=== PATIENT | female | born 1975 | race Two or more races ===

== ENCOUNTER 2024-12-12 10:20 | Emergency (ER) | payer MEDICAID, OTHER ==
[~2024-12-12] VITALS: Ht 157.5 cm; Wt 107.0 kg
--- NOTE | 2024-12-12 10:34 | ED.PDOC ---
History of Present Illness HPI Comments 49 y/o F presents with c/c headache and right neck, shoulder, back, leg, and ankle pain s/p mechanical slip and fall. Patient endorses on slipping on a wet floor and falling onto her right side, while walking inside a [employer], earlier, today. She reports hearing a 'pop' after heating the ground. Unknown head injury. No lost of consciousness. Significant history of 2x previous rotator cuff surgeries. Denies any dizziness, vision or speech changes, numbness, tingling, swelling, or further associated symptoms. Vital signs were stable at arrival. 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 Family History Family History: Unknown Social History Smoker: Non-Smoker Alcohol: Denies ETOH Use Drugs: Denies Drug Use Lives In: Home Constitutional: denies: chills, diaphoresis, fatigue, fever, malaise, sweats, weakness, others EENTM: denies: blurred vision, double vision, ear bleeding, ear discharge, ear drainage, ear pain, ear ringing, eye pain, eye redness, hearing loss, mouth pain, mouth swelling, nasal discharge, nose bleeding, nose congestion, nose pain, photophobia, tearing, throat pain, throat swelling, voice changes, others Respiratory: denies: cough, hemoptysis, orthopnea, SOB at rest, shortness of breath, SOB with excertion, stridor, wheezing, others Cardiovascular: denies: chest pain, dizzy spells, diaphoresis, Dyspnea on exertion, edema, irregular heart beat, left arm pain, lightheadedness, palpitations, PND, syncope, others Gastrointestinal: denies: abdomen distended, abdominal pain, blood streaked bowels, constipated, diarrhea, dysphagia, difficulty swallowing, hematemesis, melena, nausea, poor appetite, poor fluid intake, rectal bleeding, rectal pain, vomiting, others Genitourinary: denies: abnormal vagina bleeding, burning, dyspareunia, dysuria, flank pain, frequency, hematuria, incontinence, pain, , vagina discharge, urgency, others Neurological: denies: dizziness, fainting, headache, left sided numbness, left sided weakness, numbness, paresthesia, pre-existing deficit, right sided numbness, right sided weakness, seizure, speech problems, tingling, tremors, weakness, others Musculoskeletal: reports: others (Neck pain, right shoulder pain, thoracic spine pain, lumbar spine pain, coccyx pain, right ankle pain); denies: back pain, gout, joint pain, joint swelling, muscle pain, muscle stiffness, neck pain Integumetry: denies: bruises, change in color, change in hair/nails, dryness, laceration, lesions, lumps, rash, wounds, others Allergic/Immunocompromised: denies: Difficulty Healing, Frequent Infections, Hives, Itching, others Hematologic/Lymphatic: denies: anemia, blood clots, easy bleeding, easy bruising, swollen glands, others Endocrine: denies: excessive hunger, excessive sweating, excessive thirst, excessive urination, flushing, intolerance to cold, intolerance to heat, unexplained weight gain, unexplained weight loss, others Psychiatric: denies: anxiety, bipolar disorder, depression, hopeless, panic d isorder, schizophrenia, sleepless, suicidal, others All Other Systems: Reviewed and Negative (Comprehensive review of systems are negative unless otherwise stated in HPI) Physical Exam General Appearance: Moderate Distress (Due to multiple musculoskeletal pain concerns.), Obese HEENT: Normal ENT Inspection, Pharynx Normal, TMs Normal Neck: Other (Patient was in a hard C-collar time of evaluation.) Respiratory: Chest Non-Tender, Lungs Clear, No Accessory Muscle Use, No Respiratory Distress, Normal Breath Sounds Cardiovascular: No Edema, No JVD, No Murmur, No Gallop, Normal Peripheral Pulses, Regular Rate/Rhythm Breast Exam: Deferred Gastrointestinal: No Organomegaly, Non Tender, No Pulsatile Mass, Normal Bowel Sounds, Soft Genitalia: Deferred Pelvic: Deferred Rectal: Deferred Extremities: Other (Right shoulder is diffusely tender to palpation on anterior and lateral aspect. Moderate reduced range of motion. No crepitus appreciated. No edema or ecchymosis. Right ankle reveals some mild lateral edema. No ecchymosis. Patient can not bear weight.) Musculoskeletal : Location: Bilateral Extremity Location: Back (Bilateral tenderness to palpation throughout patient is back from thoracic region towards the coccyx. No step-offs noted. Reduced range of motion noted.) Apperance: Normal Neurologic: Alert, Normal Affect, Normal Mood Cerebellar Function: NOT DONE Reflexes: NOT DONE Skin: Dry, Normal Color, Warm Lymphatic: No Adenopathy Was a procedure done? Was a procedure done?: No Differential Dx Considerations may include: fractures, dislocations, contusions, sprain, musculoskeletal pain, among others X-Ray, Labs, Meds, VS Vital Signs Date Time Temp Pulse Resp B/P (MAP) Pulse Ox O2 Delivery O2 Flow Rate FiO2 12/12/24 10:27 97.7 74 16 135/84 97 97.7 Current Medications Medications (Trade) Dose Ordered Sig/Moy Route Start Time Stop Time Status Last Admin Acetaminophen/ Hydrocodone Bitart ([place] 10/325MG Tab) 1 tab ONCE ONCE PO 12/12/24 10:30 12/12/24 10:31 DC 12/12/24 11:26 Gabapentin (Neurontin Capsule) 600 mg ONCE ONCE PO 12/12/24 12:15 12/12/24 12:16 DC 12/12/24 12:25 X-Ray, Labs, Meds, VS Comment All studies performed in the ED today were evaluated by me personally. CT evaluation of the cervical spine was unremarkable for any cervical fractures or vertebrae concerns. X-rays of shoulder, thoracic spine, lumbar spine, coccyx and right ankle were unremarkable for any acute fractures. Patient appears to have sustained contusions related to her event. Advise utilizing medication as needed as well as ice therapy. Time of 1ST Reevaluation: 12:35 Reevaluation 1ST: Improved Consultation: PCP Patient Education/Counseling: Diagnosis, Treatment, Need For Follow Up Family Education/Counseling: Diagnosis, Treatment, No Family Present SEPSIS Sepsis Screen Recent Procedure: No On Antibiotic Therapy: No Respiratory Rate >20: No Heart Rate >90: No Temp<36 C (96.8 F) or >38.3 C: No SBP <90 or MAP <65 mmHG: No New Acute Mental Status Change: No Is the patient on CPAP, BIPAP,: No Physician Orders Cervical Without Contrast (12/12/24 10:27) Lumbar Spine 3 View (12/12/24 10:27) Sacrum And Coccyx (12/12/24 10:27) Spine Thoracic 2view (12/12/24 10:27) R Shoulder 2+ View Xray (12/12/24 10:27) R Ankle 3 View (12/12/24 10:27) Vital Signs Date Time Temp Pulse Resp B/P (MAP) Pulse Ox O2 Delivery O2 Flow Rate FiO2 12/12/24 10:27 97.7 74 16 135/84 97 97.7 Medications Medications Dose Ordered Sig/Moy Route Start Time Stop Time Status Last Admin Dose Admin Acetaminophen/ Hydrocodone Bitart 1 tab ONCE ONCE PO 12/12/24 10:30 12/12/24 10:31 DC 12/12/24 11:26 Gabapentin 600 mg ONCE ONCE PO 12/12/24 12:15 12/12/24 12:16 DC 12/12/24 12:25 Departure 1 Departure Time of Disposition: 12:35 Impression: Primary Impression: Cervical muscle strain Additional Impressions: Shoulder contusion Back strain Right ankle sprain Disposition: HOME / SELF CARE / HOMELESS Condition: Stable Additional Instructions: Advise utilizing medication as needed for symptomatic relief as well as ice therapy. If symptoms continue, patient will need to follow up with the primary care provider for longer-term management. e-Prescriptions Oxycodone W/ Acetaminophen (Percocet 5/325MG) 1 Tab Tb 1 TAB PO Q8HP PRN, #12 TAB Prov: ROB HARMON PAC 12/12/24 Ibuprofen Micronized (Ibuprofen) 800 Mg Tab 800 MG PO Q8HP PRN, #20 TAB Prov: ROB HARMON PAC 12/12/24 Discharged With: Self, Friend Critical Care Note Critical Care Time?: No Stability Stability form required: No Heart Score Heart Score: Heart Score Response (Comments) Value History N/A 0 EKG N/A 0 Age N/A 0 Risk Factors N/A 0 Troponin N/A 0 Total 0 I personally scribed for ROB HARMON PAC ([email or web address]) on 12/12/24 at 10:34. Electronically submitted by Franck Husain ([email or web address]). ROB HARMON PAC Dec 12, 2024 10:34
[2024-12-12] MEDS: HYDROcodone-ACET 10/325MG TAB PO ONE (11:26)
--- NOTE | 2024-12-12 11:31 | DVH ---
XY SPINE THORACIC 2VIEW, HISTORY: Fall/trauma TECHNICAL DATA: Frontal, swimmer's and lateral views were obtained of the thoracic spine. COMPARISON: None FINDINGS: Thoracic alignment is anatomic. Disk heights are maintained. Vertebral body heights are maintained an d there is no endplate defect. Paraspinal soft tissues are within normal limits. IMPRESSION: No acute fracture thoracic spine series.
--- NOTE | 2024-12-12 11:32 | DVH ---
XY R ANKLE 3 VIEW, INDICATION: Fall/trauma TECHNICAL DATA:Frontal , oblique and lateral views were obtained of the right ankle. COMPARISON: None FINDINGS: No fracture is identified. Joint spaces are maintained. Alignment is anatomic. Soft tissues are wit hin normal limit. IMPRESSION: No acute fracture or dislocation of the right ankle.
--- NOTE | 2024-12-12 11:33 | DVH ---
XY LUMBAR SPINE 3 VIEW, HISTORY: Trauma/fall COMPARISON: None TECHNICAL DATA: Frontal and lateral views were obtained of the lumbar spine . FINDINGS: There are 5 lumbar type vertebral bodies. Lumbar curvature is within normal limits. There is no spond ylolisthesis. Vertebral body heights are maintained. Disk heights are narrow. The facet joints appear degenerative. The sacroiliac joints are symmetric. Paraspinal soft tissues are within normal limits. IMPRESSION: No acute fracture or dislocation of the lumbar spine.
--- NOTE | 2024-12-12 11:33 | DVH ---
XY R SHOULDER 2+ VIEW XRAY INDICATION: Fall/trauma TECHNICAL DATA: 3 views were obtained of the right shoulder. COMPARISON: None FINDINGS: There is no fracture or focal bone abnormality. The glenohumeral joint is normally maintained. The ac romioclavicular joint appears degenerative. The humeral head is not high riding. Adjacent soft tissue s are within normal limits. Degenerative changes are noted involving the visualized spine. IMPRESSION: No acute fracture or dislocation of the right shoulder.
--- NOTE | 2024-12-12 11:34 | DVH ---
XY SACRUM AND COCCYX HISTORY: Fall/trauma TECHNICAL DATA: Frontal, Dunbar and lateral views were obtained of the sacrum and coccyx. COMPARISON: None FINDINGS: No fracture or focal abnormality is demonstrated involving the sacrum. The sacral neural foramina albert ear symmetric. There is no distraction or displacement of the coccygeal segments. The sacroiliac join ts appear normal. IMPRESSION: No acute fracture radiographs of the sacrum and coccyx.
--- NOTE | 2024-12-12 11:57 | DVH ---
CT CERVICAL WITHOUT CONTRAST INDICATION: Trauma/fall EXAM DATE: 12/12/2024 11:06 AM COMPARISON: None RADIATION DOSE: CTDIvol: 26.93 mGy, DLP: 631.23 mGy*cm PROCEDURE: Utilizing the CT scanner, contiguous axial images were obtained through the cervical spine . Coronal and sagittal reformatted images were then generated. All CT scans at this medical facility are performed using dose modulation techniques as appropriate t o a performed exam including the following: Automated exposure control was utilized; adjustment of th e MA and/or KV according to patient size; and use of iterative reconstruction technique. FINDINGS: Alignment at the craniocervical junction is maintained. The cortical margins are intact. Th e vertebral body heights and cervical alignment are normal. The facet joints show normal alignment wi thout fracture. The intervertebral disc spaces are narrowed and degenerative. The paraspinal soft tis sues appear normal. On axial images: There is multi level posterior disc osteophyte complex with moderate central canal n arrowing at C5-C6 and moderate to severe bilateral neuroforaminal narrowing. Facet and uncinate spond ylosis is visualized. IMPRESSION: No cervical spine fracture or subluxation.
[2024-12-12] MEDS: GABAPENTIN 300 MG CAP PO ONE (12:25)
[2024-12-12] MEDS ORDERED: IBUP-1455 PO (12:37)
[2024-12-12] MEDS ORDERED: PERCOT PO (12:37)
[2024-12-12] MEDS ORDERED: HYDR-4798 PO (12:49)
[2024-12-12] MEDS ORDERED: GABA-1250 PO (12:49)
[2024-12-12 12:50] VITALS: BP 118/72; PULSE 62; RESP 18; TEMP 97.8; O2SAT 99
== END 2024-12-12 12:52 | disposition home or self-care (01) ==
LOC: EDBD 10:20 → ER 10:20
DX: S16.1XXA Strain of muscle, fascia and tendon at neck level, initial encounter (principal); S39.012A Strain of muscle, fascia and tendon of lower back, initial encounter; S93.491A Sprain of other ligament of right ankle, initial encounter; S40.011A Contusion of right shoulder, initial encounter; M25.571 Pain in right ankle and joints of right foot; W01.0XXA Fall on same level from slipping, tripping and stumbling without subsequent striking against object, initial encounter; Y93.01 Activity, walking, marching and hiking; Y92.89 Other specified places as the place of occurrence of the external cause; Y99.8 Other external cause status
CPT/HCPCS: 72070; 72100; 72125; 72220; 73030; 73610

== ENCOUNTER 2024-12-20 05:54 | Emergency (ER) | payer MEDICAID ==
[~2024-12-20] VITALS: Ht 160 cm; Wt 105.1 kg
[~2024-12-20 05:54] MED LIST: GABA-1250 PO; HYDR-4798 PO; IBUP-1455 PO
--- NOTE | 2024-12-20 06:31 | ED.PDOC ---
VISE HAND HPI Comments 49 y/o F, presents to the ED for CC of abdominal pain. Patient states, she is currently and had a positive at home test in November; LMP on 10/14/24. Patient relays, that she had a trip and fall on 12/12/24 for which she was seen at [facility], the day after trauma patient reports vaginal bleeding with associated abdominal cramping. Since fall, patient endorses abdominal cramping has not ceased and now has new onset symptoms of nausea and vomiting. At this time patient complains of 10/10 abdominal and lower back pain. Patient denies fever, chills, vaginal discharge, dizziness, or headache. No other symptoms or modifying factors present at this time. Chief Complaint: Abdominal Pain Time Seen by MD: 06:25 Reviewed Notes: Nurses Notes, Medications, Allergies Allergies: Coded Allergies: Ketorolac Tromethamine (Verified Allergy, Unknown, 12/12/24) Home Meds Active Scripts Gabapentin (Gabapentin) 300 Mg Cap, 1 CAP PO Q6HP PRN, #30 CAP 0 Refills Prov:ROB HARMON PAC 12/12/24 Hydrocodone-Acetaminophen (Hydrocodone Bitartrate/AC 10-325 mg) 1 Tab Tab, 1 TAB PO Q8HP PRN, #20 TAB Prov:ROB HARMON PAC 12/12/24 Ibuprofen Micronized (Ibuprofen) 800 Mg Tab, 800 MG PO Q8HP PRN, #20 TAB Prov:ROB HARMON PAC 12/12/24 Information Source: Patient Mode of Arrival: Ambulatory Timing: Days Prehospital treatment: None Severity: Moderate Vaginal Discharge: None Vaginal Lesions: None Bleeding Quality: Bright Red Vaginal Mass: None Onset Of Mass/Bleeding: Following Trauma Sexual Activity: Blood Type: Unknown Symptoms of Possible : None Location Injury: Abdomen Associated Signs and Symptoms: Cramping Past Medical History PAST MEDICAL HISTORY: Denies Surgical History: Denies all surgeries 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: 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 Hx Family History Family History: Unknown Social History Smoker: Non-Smoker Alcohol: Denies ETOH Use Drugs: Denies Drug Use Lives In: Home Constitutional: denies: chills, diaphoresis, fatigue, fever, malaise, sweats, weakness, others EENTM: denies: blurred vision, double vision, ear bleeding, ear discharge, ear drainage, ear pain, ear ringing, eye pain, eye redness, hearing loss, mouth pa in, mouth swelling, nasal discharge, nose bleeding, nose congestion, nose pain, photophobia, tearing, throat pain, throat swelling, voice changes, others Respiratory: denies: cough, hemoptysis, orthopnea, SOB at rest, shortness of breath, SOB with excertion, stridor, wheezing, others Gastrointestinal: reports: others (abdominal cramping); denies: abdomen distended, abdominal pain, blood streaked bowels, constipated, diarrhea, dysphagia, difficulty swallowing, hematemesis, melena, nausea, poor appetite, poor fluid intake, rectal bleeding, rectal pain, vomiting Genitourinary: reports: ; denies: abnormal vagina bleeding, burning, dyspareunia, dysuria, flank pain, frequency, hematuria, incontinence, pain, vagina discharge, urgency, others Neurological: denies: dizziness, fainting, headache, left sided numbness, left sided weakness, numbness, paresthesia, pre-existing deficit, right sided numbness, right sided weakness, seizure, speech problems, tingling, tremors, weakness, others Musculoskeletal: reports: back pain; denies: gout, joint pain, joint swelling, muscle pain, muscle stiffness, neck pain, others Integumetry: denies: bruises, change in color, change in hair/nails, dryness, laceration, lesions, lumps, rash, wounds, others Allergic/Immunocompromised: denies: Difficulty Healing, Frequent Infections, Hives, Itching, others Hematologic/Lymphatic: denies: anemia, blood clots, easy bleeding, easy bruising, swollen glands, others Endocrine: denies: excessive hunger, excessive sweating, excessive thirst, excessive urination, flushing, intolerance to cold, intolerance to heat, unexplained weight gain, unexplained weight loss, others Psychiatric: denies: anxiety, bipolar disorder, depression, hopeless, panic disorder, schizophrenia, sleepless, suicidal, others All Other Systems: Reviewed and Negative Physical Exam General Appearance: Moderate Distress HEENT: Normal ENT Inspection, Pharynx Normal, TMs Normal Neck: Full Range of Motion, Non-Tender, Normal, Normal Inspection Respiratory: Chest Non-Tender, Lungs Clear, No Accessory Muscle Use, No Respiratory Distress, Normal Breath Sounds Cardiovascular: No Edema, No JVD, No Murmur, No Gallop, Normal Peripheral Pulses, Regular Rate/Rhythm Breast Exam: Deferred Gastrointestinal: No Organomegaly, Non Tender, No Pulsatile Mass, Normal Bowel Sounds, Soft Genitalia: Deferred Pelvic: Deferred Rectal: Deferred Extremities: No calf tenderness, Normal capillary refill, Normal inspection, Normal range of motion, Non-tender, No pedal edema Musculoskeletal : Apperance: Normal Neurologic: Alert, nutter up II-XII nml as Tested, No Motor Deficits, Normal Affect, Normal Mood, No Sensory Deficits Cerebellar Function: Normal Reflexes: Normal Skin: Dry, Normal Color, Warm Peripheral Pulses: 3+ Radial (R), 3+ Radial (L) Lymphatic: No Adenopathy Was a procedure done? Was a procedure done?: No Differential Diagnosis (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) Vaginal Bleeding: - Incomplete, - Inevitable, - Threatened X-Ray, Labs, Meds, VS Vital Signs Date Time Temp Pulse Resp B/P (MAP) Pulse Ox O2 Delivery O2 Flow Rate FiO2 12/20/24 08:19 63 16 111/61 12/20/24 07:33 98.1 63 15 108/74 (85) 100 98.1 12/20/24 07:33 63 15 100 Room Air 12/20/24 07:25 Room Air* 0 21 12/20/24 05:57 97.7 77 18 120/76 98 97.7 Lab Test 12/20/24 06:38 Range/Units Urine Color Light-yellow Yellow Urine Clarity Clear Clear Urine pH 5.5 5.0-9.0 Urine Specific [place] 1.014 1.001-1.035 Urine Protein Negative Negative Urine Ketones Negative Negative Urine Blood 3+ H Negative /uL Urine Nitrite Negative Negative Urine Bilirubin Negative Negative Urine Urobilinogen Normal Negative mg/dL Urine Leukocyte Esterase Negative Negative /uL Urine RBC 34 0 - 4 /hpf Urine Microscopic WBC 2 0-5 /HPF Urine Squamous Epithelial Cells Few <5 /hpf Urine Bacteria Few H None Seen /hpf Urine Mucus Few None Seen Urine Glucose Normal Normal mg/dL Urine Test Negative Negative Current Medications Medications (Trade) Dose Ordered Sig/Moy Route Start Time Stop Time Status Last Admin Ondansetron HCl (Zofran) 4 mg ONCE ONCE IV 12/20/24 06:45 12/20/24 06:46 DC 12/20/24 08:17 Sodium Chloride 1,000 ml @ 1,000 mls/hr Q1H ONCE IVB 12/20/24 06:45 12/20/24 07:44 DC 12/20/24 07:37 Morphine Sulfate 4 mg ONCE ONCE IV 12/20/24 06:45 12/20/24 06:46 DC 12/20/24 08:19 Diphenhydramine HCl (Benadryl Injection) 25 mg ONCE ONCE IV 12/20/24 08:15 12/20/24 08:16 DC 12/20/24 08:17 Patient alert. Complaining of back pain. Was seen here for the same symptom after a fall last week. Vitals stable. Answering questions. Ambulating. Chronic history. Reviewed her previous visit. Establish intravenous access. Was given fluids. Was given Zofran. Was given morphine. Explained to the patient. Was told to follow up with her primary care physician. Was told to come back if there is any problem. [place] [address] Ph: [phone] DIAGNOSTIC IMAGING Diagnostic Imaging Report : [id number] Signed PATIENT: LASHAWN CUEVA ACCT: [id number] UNIT: [id number] : 1975 LOC: ER ROOM / BED: / AGE / SEX: 49 / F ADM STATUS: REG ER SERVICE [id number] ORDERING PHYSICIAN: PARRISH MCDUFFIE MD PROCEDURE(s): PELUS - PELVIC REASON: fibroid ORDER NUMBER(s): [id number], ACCESSION NUMBER(s): [id number] INDICATION: fibroid TECHNIQUE: Multiple real-time grayscale transabdominal and transvaginal sonographic images along with color and duplex Doppler of the uterus and ovaries were obtained. COMPARISON: XY SACRUM AND COCCYX on DOS: 12/12/24 FINDINGS: The uterus measures 7.9 x 4.3 x 4.3 cm. The endometrial stripe measures 0.8 cm. Right ovary measures 3.0 x 2.6 x 3.0 cm with normal Doppler color flow. Right ovarian cyst measures 2.5 cm. Left ovary is not visualized. Indeterminate hypoechoic structure in the cervix measures 2.7 x 1.5 cm. IMPRESSION: Right ovarian cyst measures 2.5 cm. Small volume fluid in the endometrial canal. Indeterminate hypoechoic structure in the cervix measures 2.7 x 1.5 cm. Differential considerations could include lower uterine segment fibroid or complicated cervical nabothian cysts. ATED BY: FABIEN WU MD DICTATED DATE/TIME: 12/20/24817 SIGNED BY: FABIEN WU MD SIGNED DATE/TIME: 12/20/24817 CC: [place] [address] Ph: [phone] DIAGNOSTIC IMAGING Diagnostic Imaging Report : [id number] Signed PATIENT: LASHAWN CUEVA ACCT: [id number] UNIT: [id number] : 1975 LOC: ER ROOM / BED: / AGE / SEX: 49 / F ADM STATUS: REG ER SERVICE 0 ORDERING PHYSICIAN: PARRISH MCDUFFIE MD PROCEDURE(s): PELTR - TRANSVAGINAL US NON OB REASON: FIBROID ORDER NUMBER(s): [id number], ACCESSION NUMBER(s): [id number] INDICATION: fibroid TECHNIQUE: Multiple real-time grayscale transabdominal and transvaginal sonographic images along with color and duplex Doppler of the uterus and ovaries were obtained. COMPARISON: XY SACRUM AND COCCYX on DOS: 12/12/24 FINDINGS: The uterus measures 7.9 x 4.3 x 4.3 cm. The endometrial stripe measures 0.8 cm. Right ovary measures 3.0 x 2.6 x 3.0 cm with normal Doppler color flow. Right ovarian cyst measures 2.5 cm. Left ovary is not visualized. Indeterminate hypoechoic structure in the cervix measures 2.7 x 1.5 cm. IMPRESSION: Right ovarian cyst measures 2.5 cm. Small volume fluid in the endometrial canal. Indeterminate hypoechoic structure in the cervix measures 2.7 x 1.5 cm. Differential considerations could include lower uterine segment fibroid or complicated cervical nabothian cysts. ATED BY: FABIEN WU MD DICTATED DATE/TIME: 12/20/24817 SIGNED BY: AFBIEN WU MD SIGNED DATE/TIME: 12/20/24 0818 CC: Time of 1ST Reevaluation: 06:55 Reevaluation 1ST: Unchanged Patient Education/Counseling: Diagnosis, Treatment Family Education/Counseling: No Family Present Departure 1 Departure Time of Disposition: 06:54 Impression: Primary Impression: Degenerative disc disease Qualified Codes: M51.369 - Other intervertebral disc degeneration, lumbar region without mention of lumbar back pain or lower extremity pain Additional Impressions: Gastroenteritis Dysfunctional uterine bleeding Disposition: 01 HOME / SELF CARE / HOMELESS Condition: Good Discharged With: Self Critical Care Note Critical Care Time?: No Stability Stability form required: No Heart Score Heart Score: Heart Score Response (Comments) Value History N/A 0 EKG N/A 0 Age N/A 0 Risk Factors N/A 0 Troponin N/A 0 Total 0 I personally scribed for PARRISH MCDUFFIE MD ([email or web address]) on 12/20/24 at 06:31. Electronically submitted by Christie Alvarez ([email or web address]). I personally scribed for PARRISH MCDUFFIE MD ([email or web address]) on 12/20/24 at 06:48. Electronically submitted by Christie Alvarez ([email or web address]). I personally scribed for PARRISH MCDUFFIE MD ([email or web address]) on 12/20/24 at 08:57. Electronically submitted by Christie Alvarez ([email or web address]). I personally scribed for PARRISH MCDUFFIE MD ([email or web address]) on 12/20/24 at 08:58. Electronically submitted by Christie Alvarez ([email or web address]). PARRISH MCDUFFIE MD Dec 20, 2024 06:31
[2024-12-20 06:54] LABS: Urine Protein, UAD Negative (Negative)
[2024-12-20 07:33] VITALS: TEMP 98.1; O2SAT 100
[2024-12-20] MEDS: SODIUM CHLORIDE 0.9% 1,000 ML IVB ONE (07:37)
[2024-12-20] MEDS: ONDANSETRON HCL 4 MG/2 ML VIAL IV ONE (08:17)
[2024-12-20] MEDS: diphenhdrAMINE HCL 50 MG/1 ML VL IV ONE (08:17)
[2024-12-20] MEDS: MORPHINE SULFATE 4 MG/ML SYR/VIAL IV ONE (08:19)
--- NOTE | 2024-12-20 08:21 | DVH ---
INDICATION: fibroid TECHNIQUE: Multiple real-time grayscale transabdominal and transvaginal sonographic images along with color and duplex Doppler of the uterus and ovaries were obtained. COMPARISON: XY SACRUM AND COCCYX on DOS: 12/12/24 FINDINGS: The uterus measures 7.9 x 4.3 x 4.3 cm. The endometrial stripe measures 0.8 cm. Right ovary measures 3.0 x 2.6 x 3.0 cm with normal Doppler color flow. Right ovarian cyst measures 2 .5 cm. Left ovary is not visualized. Indeterminate hypoechoic structure in the cervix measures 2.7 x 1.5 cm. IMPRESSION: Right ovarian cyst measures 2.5 cm. Small volume fluid in the endometrial canal. Indeterminate hypoechoic structure in the cervix measures 2.7 x 1.5 cm. Differential considerations c ould include lower uterine segment fibroid or complicated cervical nabothian cysts.
[2024-12-20 10:16] LABS: Potassium 3.6 mmol/L (3.5-5.1); Sodium 145 mmol/L (136-145)
[2024-12-20 10:17] LABS: Anion Gap 9 (5-15); Calcium 9.3 mg/dL (8.7-10.4); Carbon Dioxide 28 mmol/L (20-31)
[2024-12-20 10:22] LABS: BUN/Creatinine Ratio 9.0 (10.0-20.0); Glucose 86 mg/dL (74-106)
[2024-12-20 10:34] LABS: Blood Urea Nitrogen 7 mg/dL (9-23); Chloride 108 mmol/L (98-107)
[2024-12-20] MEDS: HYDROcodone-ACET 10/325MG TAB PO ONE (11:11)
[2024-12-20 11:40] VITALS: BP 111/61; PULSE 63; RESP 16
[2024-12-20] MEDS: HYDROmorphone HCL 2 MG/ML VL/or syr IV ONE (11:40)
== END 2024-12-20 12:30 | disposition home or self-care (01) ==
LOC: ER 05:54
DX: O46.90 Antepartum hemorrhage, unspecified, unspecified trimester (principal); M51.360 Other intervertebral disc degeneration, lumbar region with discogenic back pain only; K52.9 Noninfective gastroenteritis and colitis, unspecified; Z3A.00 Weeks of gestation of pregnancy not specified
CPT/HCPCS: 36415; 76830; 76856; 80048; 81001; 81025; 96361; 96374; 96375; 99285; J1171; J1200; J2270; J2405; J7030